=== PATIENT | female | born 2000 | race Two or more races ===

== ENCOUNTER 2025-05-27 04:27 | Emergency (ER) | payer OTHER ==
[~2025-05-27] VITALS: Ht 157.5 cm; Wt 66.8 kg
--- NOTE | 2025-05-27 04:49 | Physician Documentation ---
History of Present Illness ~ Chief Complaint: Numbness Stated Complaint: LEFT LEG NUMBNESS Time Seen by MD: 04:48 HPI Patient presents to the emergency room with feeling of chest tightness. Symptoms began after she woke up and her left leg that has numb. Symptoms have numbness simply resolved quickly after she woke up and stretch out her leg but after that she began having symptoms. Also of concern she has a rash on her left leg over the past week. Patient also endorses taking caffeine pills this evening as she had to drive from [email or web address] Review of Systems ROS All review of systems negative except as per HPI Physical Exam Vital Signs: Temperature: 98.7, Heart Rate: 89, Respiratory Rate: 16, BP: 133/90, Pulse Oximetry: 100, Weight: 66.800 Oxygen Flow Rate: 0 General Appearance General: Patient is awake, alert, oriented x4, anxious and tearful Head: Normocephalic and atraumatic. Eyes: Conjunctival normal. EOMI. PERRL. ENT: Mucous membranes moist. Neck: Supple, trachea is midline. Chest: Clear to auscultation bilaterally without rales, rhonchi, or wheezes. There is no accessory muscle use or retractions. Cardiac: RRR without murmurs, gallops, or rubs. Neuro: Cranial nerves II-XII grossly intact. No focal neuro deficits. Patient ambulating without difficulty. Progress Results/Orders Results/Orders Vital Signs 05/27/25 04:29 Temp 98.7 Pulse 89 Resp 16 B/P (MAP) 133/90 Pulse Ox 100 O2 Flow Rate 0 Medical Decision Making Additional information obtaine: N/A Findings Patient presents to the emergency room with some vague feeling of tightness in her chest as well as transient numbness in her left lower extremity which has since resolved. Differentials include but are not limited to stroke, anxiety, thyroid disorder, peripheral nerve palsy. Given her symptoms of numbness resolved after straightening out her leg a suspect her leg fell asleep when she was sleeping and symptoms have resolved. No other symptoms of weakness where signs of stroke. Given patient's age and lack of risk factors I do not feel she requires CT scan MRI imaging or neurologic consultation. Regarding patient's subjective feeling of tightness in her chest, I feel this is related to anxiety. Patient is feeling better after I have spoken to her and she has stopped crying in his feeling better. I do not feel emergent labs are necessary. Patient was history of anxiety Differential Dx:Considerations: Include: Ledesma's Palsey, CVA, Delirium tremens, DKA, Drug overdose, Electrolyte imbalance, Encephalopathy, Hypoxemia, Hypoglyc emia, Mass lesion, Respiratory failure, Subarachnoid Hemorrhage, TIA, Other Departure Disposition: HOME / SELF CARE / HOMELESS Impression: Primary Impression: Anxiety Condition: Stable Discharge Instructions: Managing Anxiety, Adult Referrals: NO PRIMARY CARE PROVIDER (PCP) Signature Scribe Signature: No scribe Attestation: The note accurately reflects work and decisions made by me.Rigo Stinson MD 05/27/25 04:59 RIGO STINSON MD May 27, 2025 04:49
[2025-05-27 05:07] VITALS: BP 130/90; PULSE 88; RESP 18; TEMP 98.6; O2SAT 99
== END 2025-05-27 05:09 | disposition home or self-care (01) ==
LOC: ER 04:28
DX: F41.9 Anxiety disorder, unspecified (principal); R07.89 Other chest pain; R21 Rash and other nonspecific skin eruption
CPT/HCPCS: 99282